=== PATIENT | female | born 1995 | race Caucasian/White ===

== ENCOUNTER 2019-04-07 19:03 | Emergency (ER) | payer OTHER ==
[~2019-04-07] VITALS: Ht 167.6 cm; Wt 81.6 kg
--- NOTE | 2019-04-08 11:10 | EKG ---
[facility] [address] [facility] [place], [place] [address] Signed Normal sinus rhythm Possible Left atrial enlargement Borderline ECG No previous ECGs available Confirmed by LAURENCE PEDROZA DO ([id number]) on 04/08/2019 11:09:43 AM Electronically Signed By: LAURENCE PEDROZA DO 04/08/19 1110 PATIENT NAME: NOEMY JOHNSON Electrocardiogram DATE OF : [birth year] PHYSICIAN: LAURENCE PEDROZA DO REPORT #: [id number] REPORT IS CONFIDENTIAL AND NOT TO BE RELEASED WITHOUT AUTHORIZATION
== END 2019-04-07 21:12 | disposition home or self-care (01) ==
LOC: ED 19:03
DX: R07.89 Other chest pain (principal)
CPT/HCPCS: 71045; 93005; 93010; 99285-25

== ENCOUNTER 2019-10-17 06:55 | Day surgery (SDC) | payer OTHER ==
[~2019-10-17] VITALS: Ht 170.2 cm; Wt 77.1 kg
--- NOTE | ~2019-10-17 | OR ---
[facility] [address] [facility] [place], [place] [address] Draft DATE OF OPERATION: 10/17/2019 SURGEON: Monica Hahn MD SET UP MECHANIC HEADING MACHINES: Walter Winston D.O. PREOPERATIVE DIAGNOSES: 1. Pelvic pain. 2. Dysmenorrhea. POSTOPERATIVE DIAGNOSES: 1. Pelvic pain. 2. Dysmenorrhea. 3. Severe endometriosis. PROCEDURES: 1. Diagnostic laparoscopy. 2. Lysis of adhesions. 3. Laser fulguration of endometriosis. 4. Excision of endometriotic nodules. ANESTHESIA: General ET. ESTIMATED BLOOD LOSS: Approximately 25 mL. DRAINS: None. INDICATIONS AND FINDINGS: The patient is a 24-year-old female, 1, para 0, AB1, who has been having pelvic pain and dysmenorrhea despite using OCPs. Her pain has been unrelenting and a decision was made to proceed with surgical evaluation. At the time of surgery, exam under anesthesia was normal. At the time of laparoscopy, however, there were some adhesions of the sigmoid to the left lower quadrant. There was evidence of an endometrioma in the left ovary, which was adherent to the left ovarian fossa. There was extensive endometriosis in the cul-de-sac. There was also endometriotic nodules in the left anterior uterus as well as the left uterosacral ligament. There was superficial PATIENT NAME: NOEMY JOHNSON OPERATIVE REPORT DATE OF : [birth year] REPORT #: [id number] PHYSICIAN: MONICA HAHN MD PCP: ANTONIO WALKER PA-C REPORT IS CONFIDENTIAL AND NOT TO BE RELEASED WITHOUT AUTHORIZATION [facility] [address] [place], [place] [address] Draft endometriosis in the right posterior ovarian fossa. There was also an endometriotic implant in the mid right abdomen on the sidewall. The appendix did appear normal. The tubes appeared normal. DESCRIPTION OF PROCEDURE: The patient was prepped and draped in the dorsal lithotomy position. Hathaway catheter was placed. An open-sided speculum was placed and the anterior lip of the cervix was visualized and grasped with a single-tooth tenaculum. Hulka clamp was then placed the tenaculum and speculum were removed. Attention was directed above. The infraumbilical area was injected with 0.5% Marcaine plain. An incision was made with a knife, and each layer was then serially elevated and incised until the fascia was opened and identified. Stay sutures of 0-Vicryl were placed. The peritoneum was then opened bluntly. The David cannula was placed and tied into place. Placing the scope confirmed proper positioning. The significant endometriosis was noted. A second port was made on the left side. This area was transilluminated, injected with the Marcaine, incision made with a knife and a 5 mm port placed under direct vision. This was far lateral and slightly below the level of the umbilicus. A third port was made on the right side. Again, fairly far laterally, this area was transilluminated, injected with the Marcaine, incision made with a knife and a 5 mm port placed under direct vision. There was some blood dripping from this port, though with inflation of the balloon and pressure, this stopped. Initially, the laser was used, which was a CO2 fiber laser to fulgurate all of the endometriosis in the posterior cul-de-sac. The adhesions were taken down using the [place] LigaSure device on the left pelvic sidewall, which allowed for further visualization of the left ovary. The endometrioma was adherent to the left posterior ovarian fossa. These adhesions were bluntly lysed. This endometrioma, however, was not treated given its location deep in the ovary and it was felt that the ovary would be lost if treatment were done. Because of the deep nodules on the left anterior uterus and near the bladder flap, this was excised using the cautery scissors. The nodule was grasped and undermined and excised. The same procedure was done on the left uterosacral ligament near the insertion to the uterus. It was grasped and excised as well. There was a nodule in the right mid abdomen on the sidewall, and this was grasped and excised in the same manner. The abdomen was then copiously irrigated and inspected. There was some endometriosis behind the right ovary, and at this point the laser had stopped working after using it to ablate multiple other areas and this area was grasped and undermined, and superficially excised using the [place] device as well. Following this, all areas of endometriosis appeared to be completely treated. The ureters were seen and were seen to be separate from the areas treated. There was no evidence of any active bleeding in the pelvis. After being sure that there was no evidence of any bleeding, Tisseel was sprayed over the pelvis in the raw areas just because of the defects left and to be sure that there was no ongoing bleeding from the treatment. After spraying this, the right-sided port was removed and there was indeed some bleeding from the port. This was followed by placement of the Antoine-Shay and 0-Vicryl PATIENT NAME: NOEMY JOHNSON OPERATIVE REPORT DATE OF : [birth year] REPORT #: [id number] PHYSICIAN: MONICA HAHN MD PCP: ANTONIO WALKER PA-C REPORT IS CONFIDENTIAL AND NOT TO BE RELEASED WITHOUT AUTHORIZATION [facility] [address] [facility] [place], [place] [address] Draft suture was placed ligating this vessel. There was evidence of a hematoma, though it did not appear to be expanding, but a second 0-Vicryl suture was placed using the Veress needle, and this also rendered good hemostasis. Following this, the incisions were closed. The fascial incision at the umbilicus was closed after removing all the instruments, allowing as much CO2 as possible to escape. It was closed with 0-Vicryl suture. The stay sutures were tied across this as well. The skin was closed with subcu with sutures of 3-0 Vicryl Rapide. Attention was directed down below and the Hulka clamp was removed. There was no evidence of any ongoing bleeding from the cervix. The Hathaway catheter was also removed. All sponge and needle counts were correct. She tolerated the procedure well and was taken to the recovery room in good condition. Monica Hahn MD PJW/MODL /[id number] cc: Walter Winston DO Copies: WALTER WINSTON DO ~ PATIENT NAME: NOEMY JOHNSON OPERATIVE REPORT DATE OF : [birth year] REPORT #: [id number] PHYSICIAN: MONICA HAHN MD PCP: ANTONIO WALKER PA-C REPORT IS CONFIDENTIAL AND NOT TO BE RELEASED WITHOUT AUTHORIZATION
[~2019-10-17 06:55] MED LIST: LOESTRIN1 EAC1 PO
--- NOTE | 2019-10-17 08:43 | NUR ---
PT IS ALERT, ORIENTED AND VERY PLEASANT. PT EXPRESSED BEING SOMEWHAT ANXIOUS, GUIDED HER REGARDING WHAT SHE COULD EXPECT. ANSWERED ALL QUESTIONS ASKED. PT REQUESTED PRAYER, WILL FOLLOW NEEDED
--- NOTE | 2019-10-17 11:36 | NUR ---
10/17/19 1136 Erica Grande 1121-PATIENT ARRIVED TO PACU ON 6L MASK RR EVEN. REACTIVE TO VERBAL STIMULI OPENING EYES. ORIENTED TO PACU. 4 LAP SITES TO ABDOMEN CDI WITH BANDAIDS IN PLACE. SR. IVF INFUSING. 1127-PATIENT REPORTING PAIN 5/10 TO ABDOMEN REPORTS "FEEL LIKE I NEED TO PEE" EDUCATED ABOUT FRAUSTO CATHETER BEING REMOVED IN OR. KATERINA MCKEON PLACING ORDER FOR PAIN MED.
--- NOTE | 2019-10-17 12:14 | NUR ---
ARLETTE BRISCOE ON WARM PER PATIENT'S REQUEST. ICED WATER AND CRACKERS ARE GIVEN. PATIENT IS SITTING UP EATING AND DRINKING AND TOLERATING THAT WELL. PATIENT DOES REPORT INCREASED PAIN WITH VERY LITTLE MOVEMENT. DR DIAZ IS IN TO SPEAK WITH THE PATIENT. PATIENT'S QUESTIONS ARE ANSWERED. CALL LIGHT IS WITHIN REACH.
[2019-10-17] MEDS ORDERED: ONDANSETRON ODT8 MG PO (12:43)
[2019-10-17] MEDS ORDERED: MOTRIN IB200 MG PO (12:43)
[2019-10-17] MEDS ORDERED: PERCOCET 5-3251 EACH PO (12:43)
--- NOTE | 2019-10-17 13:10 | NUR ---
PATIENT DECLINES OFFER OF LUNCH FROM DIETARY. PATIENT DENIES ADDITIONAL NEEDS AT THIS TIME.
--- NOTE | 2019-10-17 14:18 | NUR ---
PATIENT IS UP TO THE BATHROOM WITH MY STANDBY. PATIENT AMBULATES WELL, VOIDS 300 ML CLEAR, YELLOW URINE AND IS BACK IN HER ROOM. DISCHARGE INSTRUCTIONS ARE GIVEN AND SHE VERBALIZES UNDERSTANDING. PATIENT REPORTS FEELING HOT. COLD CLOTH AND ICE PACK IS GIVEN. PATIENT IS BACK IN BED. EMESIS BAG GIVEN. CALL LIGHT WITHIN REACH.
--- NOTE | 2019-10-17 14:25 | NUR ---
PT BACK FROM PACU-ALERT, EXPRESSES PAIN AT 7, GAVE ENCOURAGEMENT AND SHARED WITH RAJESH GARCIA. WILL FOLLOW
--- NOTE | 2019-10-17 16:02 | NUR ---
ADRIANNE 1435: PATIENT PUSHES HER CALL LIGHT AND REPORTS "I'M FEELING MUCH BETTER." PATIENT SITS ON THE EDGE OF THE BED AND DENIES DIZZINESS OR NAUSEA. PATIENT IS GETTING DRESSED AND TRANSFERS HERSELF TO THE WHEELCHAIR AND THEN TO PERSONAL VEHICLE AND TOLERATES THAT WELL.
--- NOTE | 2019-10-18 14:14 | PATH ---
[facility] [address] [place], [place] [address] Signed SPECIMEN(S): A ENDOMETRIOTIC NODULES SPECIMEN SOURCE: A. ENDOMETRIOTIC NODULES CLINICAL HISTORY: Dysmenorrhea and pelvic pain. FINAL PATHOLOGIC DIAGNOSIS: Soft tissue, "endometriotic nodules", excision: - Endometriosis. NAL:cml:C2NR MICROSCOPIC EXAMINATION: Histologic sections of all submitted blocks are examined by light microscopy. These findings, together with the gross examination, support the pathologic diagnosis. GROSS DESCRIPTION: The specimen, labeled "JS," and designated on the requisition "endometriotic nodules," is received in formalin and consists of multiple fragments of pink-figueroa soft tissue (2.4 x 2.1 x 1.1 cm in aggregate). The tissue is submitted entirely in cassette (A1). AC (under the direct supervision of a pathologist) The Gross Description was prepared using a voice recognition system. The report was reviewed for accuracy; however, sound-alike word errors, addition and/or deletions may occur. If there is any question about this report, please contact Client Services. PERFORMING LABORATORY: The technical component was performed by [facility], [address] [place] [id number] (Drying Machine Operator [employer]: Yael Iqbal MD; CLIA# [id number]). [facility], [address] [address] (CLIA# [id number]). Diagnostician: Germaine Lozano MD Pathologist Electronically Signed 10/18/2019 PATIENT NAME: NOEMY JOHNSON PATHOLOGY DATE OF : [birth year] REPORT #: [id number] PHYSICIAN: KATLYN PATHOLOGY PCP: ANTONIO WALKER PA-C REPORT IS CONFIDENTIAL AND NOT TO BE RELEASED WITHOUT AUTHORIZATION [address] [address] Signed Copies: ~ PATIENT NAME: NOEMY JOHNSON PATHOLOGY DATE OF : [birth year] REPORT #: [id number] PHYSICIAN: KATLYN PATHOLOGY PCP: ANTONIO WALKER PA-C REPORT IS CONFIDENTIAL AND NOT TO BE RELEASED WITHOUT AUTHORIZATION
== END 2019-10-17 14:40 | disposition home or self-care (01) ==
LOC: DS 06:55
PROVIDERS: Obstetrics & Gynecology
PROC: 0U514ZZ Destruction of Left Ovary, Percutaneous Endoscopic Approach (ICD-10-PCS; principal; 2019-10-17 08:45)
PROC: 0U594ZZ Destruction of Uterus, Percutaneous Endoscopic Approach (ICD-10-PCS; 2019-10-17 08:45)
PROC: 0UN14ZZ Release Left Ovary, Percutaneous Endoscopic Approach (ICD-10-PCS; 2019-10-17 08:45)
DX: N80.0 Endometriosis of uterus (principal); N80.1 Endometriosis of ovary
CPT/HCPCS: J0330; J0595; J1100; J1885; J2001; J2250; J2270; J2405; J2704; J2765; J3475; J7121